=== PATIENT | female | born 1980 | race Caucasian/White ===

== ENCOUNTER 2016-12-16 01:26 | Emergency (ER) | payer OTHER, SELFPAY ==
[~2016-12-16] VITALS: Ht 165.1 cm; Wt 166.5 kg
[2016-12-16] MEDS ORDERED: ALBUTEROL 90 MCG/ACT 8GM HFA INHALER INH ONE (04:30)
[2016-12-16] MEDS ORDERED: BENZONATATE 100 MG CAP PO ONE (04:30)
[2016-12-16] MEDS ORDERED: TESS100C PO (05:54)
[2016-12-16] MEDS ORDERED: ALBUTEROL SULFATE 2.5 MG/0.5 ML INH NEB SOLN NEB ONE (06:00)
[2016-12-16 06:01] VITALS: BP 139/74
--- NOTE | 2016-12-16 08:08 | REP ---
Clinical: Cough. Findings: Mediastinum and cardiac silhouette are normal. Trace basilar atelectasis cannot be excluded. No focal consolidation, effusion, or pneumothorax. Skeletal structures are intact. Impression: No focal consolidation. Question minimal trace right basilar atelectasis. Signed by Prosper Larios MD 12/16/2016 07:59 A
== END 2016-12-16 06:10 | disposition home or self-care (01) ==
LOC: M ED 02:31
DX: J20.9 Acute bronchitis, unspecified (principal)

== ENCOUNTER → 2017-02-06 | Outpatient (CLI) | payer OTHER ==
[~2017-02-06] MED LIST: TESS100C PO
--- NOTE | 2017-02-10 10:16 | SLEEPCENT ---
DATE OF PROCEDURE: 02/06/2017 INTERPRETATION: Nocturnal polysomnography was performed due to concern for the obstructive sleep apnea syndrome in this patient with a history of excessive somnolence, nonrestorative sleep and a BMI of greater than 45. 8 hours and 3 minutes of data were reviewed. There were 348 minutes of sleep identified. Sleep latency was prolonged at 47 minutes. REM latency was normal at 71 minutes. Sleep architecture improved after interventions were made. Overall sleep efficiency was 69%. The patient's EKG showed a sinus rhythm with an average heart rate of 78 beats per minute. EEG showed normal wave forms for awake and sleep. There were 158 respiratory events identified of 10 seconds in duration or greater for an apnea-hypopnea index of 27.2. The events were associated with oxygen desaturations into the low 80s. Having clearly established the presence of obstructive sleep apnea syndrome, testing was stopped shortly after midnight for the application of pressure therapy. The patient was fit a ResMed AirFit F10 full face mask of small size, 4 cm of water pressure were applied to the circuit and the lights were again extinguished. Patient quickly established sleep and best pressure for palliation of respiratory events was found to be 7 cm of water. Remaining measures of sleep physiology were normal. IMPRESSION: Severe obstructive sleep apnea syndrome (G47.33). Apnea hypopnea index 27.2. RECOMMENDATION: Nightly use of pressure therapy 7 cm of water.
== END ==
LOC: M SLEEP 19:45
PROVIDERS: ATTEND Nurse Practitioner Adult Health
DX: G47.33 Obstructive sleep apnea (adult) (pediatric) (principal)

== ENCOUNTER 2018-04-07 00:50 | Emergency (ER) | payer SELFPAY, OTHER | END 2018-04-07 02:00 | disposition home or self-care (01) | LOC: M ED 00:50 | DX: S46.912A Strain of unspecified muscle, fascia and tendon at shoulder and upper arm level, left arm, initial encounter (principal); X58.XXXA Exposure to other specified factors, initial encounter; Y92.099 Unspecified place in other non-institutional residence as the place of occurrence of the external cause; Y93.9 Activity, unspecified; Y99.9 Unspecified external cause status; E28.2 Polycystic ovarian syndrome | CPT/HCPCS: 73030 ==

== ENCOUNTER 2018-11-24 01:32 | Emergency (ER) | payer SELFPAY ==
[~2018-11-24] VITALS: Ht 167.6 cm; Wt 163.6 kg
[~2018-11-24 01:32] MED LIST changes: +CAPS0.022 TOP
[2018-11-24] MEDS ORDERED: ISOVUE-370 76% 100ML VIAL (Q9967) As Ordered ONE (02:45)
[2018-11-24] MEDS ORDERED: NS 500 ML IV ONE (02:45)
[2018-11-24] MEDS ORDERED: ASPIRIN 81 MG CHEW TABLET PO ONE (02:45)
[2018-11-24 02:57] LABS: BASO % 0.4 % (0.0-1.0); EOS # 0.2 10^3/uL (0.0-0.50); EOS % 1.8 % (0.0-3.0); HEMATOCRIT 38.3 % (36.0-47.0); HEMOGLOBIN 12.4 g/dl (12.0-15.5); LYMPH # 2.6 10^3/uL (1.5-4.5); LYMPH % 28.7 % (24.0-44.0); MEAN CORPUSCULAR HEMOGLOBIN 29.3 pg (27.0-33.0); MEAN CORPUSCULAR HGB CONC 32.4 g/dl (32.0-36.5); MEAN CORPUSCULAR VOLUME 90.5 fl (80.0-96.0); MONO # 0.8 10^3/uL (0.0-0.8); MONO % 8.3 % (0.0-5.0); NEUTROPHILS # 5.6 10^3/uL (1.8-7.7); NEUTROPHILS % 60.5 % (36.0-66.0); PLATELET COUNT, AUTOMATED 318 10^3/uL (150-450); RED BLOOD COUNT 4.23 10^6/uL (4.00-5.40); WHITE BLOOD COUNT 9.2 10^3/uL (4.0-10.0)
[2018-11-24 03:21] LABS: HCG, SERUM QUALITATIVE NEGATIVE (NEGATIVE)
[2018-11-24 03:26] LABS: BLOOD UREA NITROGEN 18 MG/DL (7-18); CALCIUM LEVEL 8.1 MG/DL (8.5-10.1); CARBON DIOXIDE LEVEL 31 MEQ/L (21-32); CHLORIDE LEVEL 106 MEQ/L (98-107); CK-MB VALUE MASS < 1.0 NG/ML (<3.6); CPK CREATINE PHOSPHOKINASE 64 U/L (26-192); CREATININE FOR GFR 0.81 MG/DL (0.55-1.30); GLOMERULAR FILTRATION RATE > 60.0 (>58); GLUCOSE, FASTING 87 MG/DL (70-100); MB/CK RELATIVE INDEX 1.56 (< OR =4); NT-PRO BNP 30 PG/ML (<125); SODIUM LEVEL 142 MEQ/L (136-145); TROPONIN I < 0.02 NG/ML (< 0.10)
--- NOTE | 2018-11-24 04:21 | REPVR ---
EXAM: US Duplex Bilateral Lower Extremity Veins EXAM DATE/TIME: 11/24/2018 3:50 AM CLINICAL HISTORY: 38 years old, female; Signs and symptoms; Edema, localized; Lower extremity, bilateral; Additional info: Lower extremity swelling, HX of dvts TECHNIQUE: Imaging protocol: Real-time duplex ultrasound of the Bilateral Lower Extremities with 2-D frances scale, color Doppler flow and spectral waveform analysis. Complete exam focused on the bilateral lower extremity veins. COMPARISON: US Duplex, Ext LOWER veins, bilat 04/10/2016 9:42 AM FINDINGS: Right deep veins: Unremarkable. The common femoral, femoral, and popliteal veins are patent without thrombus. Normal compressibility, augmentation response and Doppler waveforms. Right superficial veins: Saphenofemoral junction is patent without thrombus. Left deep veins: Unremarkable. The common femoral, femoral, and popliteal veins are patent without thrombus. Normal compressibility, augmentation response and Doppler waveforms. Left superficial veins: Saphenofemoral junction is patent without thrombus. Soft tissues: Unremarkable. IMPRESSION: No deep vein thrombosis in the veins visualized in both lower extremities. Electronically signed by: Rogelio Samson On 11/24/2018 04:21:38 AM
--- NOTE | 2018-11-24 04:32 | REPVR ---
EXAM: CT Angiography Chest With Contrast EXAM DATE/TIME: 11/24/2018 2:36 AM CLINICAL HISTORY: 38 years old, female; Chest pain; R/O pe TECHNIQUE: Imaging protocol: Axial computed tomographic angiography images of the chest with intravenous contrast using CT angiography protocol. Coronal and sagittal reformatted images were created and reviewed. 3D rendering: MIP reconstructed images were created and reviewed. Radiation optimization: All CT scans at this facility use at least one of these dose optimization techniques: automated exposure control; mA and/or kV adjustment per patient size (includes targeted exams where dose is matched to clinical indication); or iterative reconstruction. Contrast material: ISO; Contrast volume: 75 ml; Contrast route: AC; COMPARISON: CT ANGIO CHEST 04/10/2016 11:22 AM FINDINGS: Pulmonary arteries: There is no pulmonary embolism in the main, lobar, or segmental pulmonary arteries. The timing of the contrast bolus was suboptimal for the assessment of the subsegmental pulmonary arteries, which are poorly opacified. Aorta: There is no thoracic aortic aneurysm, pseudoaneurysm, penetrating atherosclerotic ulcer, or dissection. There is a bovine aortic arch. Lungs: There is a 3 mm solid pulmonary nodule in the right upper lobe (image 60 of the axial series 501), which is unchanged compared to the prior CT scan on 04/10/2016, and for which no further followup is necessary. The lungs are otherwise clear. There is no lung consolidation, pulmonary infarct, or mass. No emphysematous changes or interstitial lung disease is noted. The major airways are patent. Pleural space: Normal. No pneumothorax. No pleural effusion. Heart: No cardiomegaly. No pericardial effusion. The ratio of the diameter of the right ventricle to the diameter of the left ventricle measures less than 1, which is within normal limits and there is no evidence for a right ventricular strain. Mediastinum: No mediastinal mass, hemorrhage, or pneumomediastinum is noted. Lymph nodes: Normal. No enlarged lymph nodes. Bones/joints: The imaged bony structures are intact. There is no suspicious osteolytic or osteoblastic lesion. There are endplate spurs in the thoracic spine. Soft tissues: Unremarkable. IMPRESSION: No acute findings in the chest. No pulmonary embolism in the main, lobar, or segmental pulmonary arteries. The timing of the contrast bolus was suboptimal for the assessment of the subsegmental pulmonary arteries, which are poorly opacified. Electronically signed by: Rogelio Samson On 11/24/2018 04:32:31 AM
[2018-11-24] MEDS ORDERED: KETOROLAC 30 MG/ML VIAL (J1885) IV ONE (05:45)
[2018-11-24 05:53] VITALS: BP 130/65
--- NOTE | 2018-11-24 06:03 | ECGEPIP ---
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
== END 2018-11-24 06:23 | disposition home or self-care (01) ==
LOC: M ED 01:32
DX: R07.89 Other chest pain (principal); G89.29 Other chronic pain; M25.551 Pain in right hip; F41.1 Generalized anxiety disorder; Z87.891 Personal history of nicotine dependence; Z86.718 Personal history of other venous thrombosis and embolism; Z86.711 Personal history of pulmonary embolism
CPT/HCPCS: 71275; 80048; 82550; 82553; 83880; 84484; 84703; 85025; 93005; 93041; 93970; 94760; 96374; 99284; J1885; Q9967

== ENCOUNTER 2019-05-05 11:31 | Observation (INO) | payer OTHER, SELFPAY ==
[~2019-05-05] VITALS: Ht 170.2 cm; Wt 165.6 kg
[2019-05-05] MEDS ORDERED: ACET1TAB55 PO (11:51)
[2019-05-05 12:21] LABS: BASO % 0.3 % (0.0-1.0); EOS # 0.1 10^3/uL (0.0-0.5); EOS % 1.2 % (0.0-3.0); HEMATOCRIT 41.4 % (36.0-47.0); HEMOGLOBIN 13.3 g/dl (12.0-15.5); LYMPH # 2.1 10^3/uL (1.5-5.0); LYMPH % 21.6 % (24.0-44.0); MEAN CORPUSCULAR HEMOGLOBIN 29.1 pg (27.0-33.0); MEAN CORPUSCULAR HGB CONC 32.1 g/dl (32.0-36.5); MEAN CORPUSCULAR VOLUME 90.6 fl (80.0-96.0); MONO # 0.6 10^3/uL (0.0-0.8); MONO % 6.1 % (0.0-5.0); NEUTROPHILS # 6.7 10^3/uL (1.5-8.5); NEUTROPHILS % 70.6 % (36.0-66.0); PLATELET COUNT, AUTOMATED 311 10^3/uL (150-450); RED BLOOD COUNT 4.57 10^6/uL (4.00-5.40); WHITE BLOOD COUNT 9.5 10^3/uL (4.0-10.0)
[2019-05-05 12:31] LABS: INR 1.01
[2019-05-05 12:41] LABS: PARTIAL THROMBOPLASTIN TIME 30.4 SECONDS (25.0-38.4)
[2019-05-05 12:47] LABS: ALBUMIN 3.4 GM/DL (3.2-5.2); ALT/SGPT 44 U/L (12-78); BILIRUBIN,DIRECT 0.1 MG/DL (0.0-0.2); BILIRUBIN,TOTAL 0.3 MG/DL (0.2-1.0); BLOOD UREA NITROGEN 17 MG/DL (7-18); CALCIUM LEVEL 8.2 MG/DL (8.5-10.1); CARBON DIOXIDE LEVEL 29 MEQ/L (21-32); CHLORIDE LEVEL 105 MEQ/L (98-107); CK-MB VALUE MASS < 1.0 NG/ML (<3.6); CPK CREATINE PHOSPHOKINASE 62 U/L (26-192); CREATININE FOR GFR 0.83 MG/DL (0.55-1.30); GLOMERULAR FILTRATION RATE > 60.0 (>58); GLUCOSE, FASTING 94 MG/DL (70-100); LIPASE 88 U/L (73-393); MB/CK RELATIVE INDEX 1.61 (< OR =4); POTASSIUM SERUM 3.7 MEQ/L (3.5-5.1); SODIUM LEVEL 140 MEQ/L (136-145); TOTAL PROTEIN 7.5 GM/DL (6.4-8.2); TROPONIN I < 0.02 NG/ML (< 0.10)
[2019-05-05] MEDS ORDERED: ISOVUE-370 76% 100ML VIAL (Q9967) As Ordered ONE (13:11)
[2019-05-05] MEDS ORDERED: ASPIRIN 325 MG TAB PO ONE (13:15)
--- NOTE | 2019-05-05 13:37 | REP ---
CHEST, SINGLE VIEW: There is no evidence of acute infiltrate. No pleural effusion is seen. The heart is normal in size. The mediastinal silhouette is unremarkable. The visualized osseous structures are intact. IMPRESSION: No acute pulmonary disease. Electronically Signed by Duc Noyola MD 05/06/2019 09:24 A
--- NOTE | 2019-05-05 13:40 | REP ---
CT BRAIN WITHOUT CONTRAST: HISTORY: CVA. No comparison brain imaging. CT FINDINGS: Preliminary digital advance scout radiograph is unremarkable. The bony calvarium is intact. Visualized paranasal sinuses are clear. On soft tissue window settings, lateral, third, and fourth ventricles are normal in size and position. There is a solitary punctate dystrophic calcification in the periventricular white matter of the left frontal lobe. Noyola-white differentiation pattern is otherwise unremarkable. There is no evidence of infarct, hemorrhage, mass, extra-axial fluid collection, or midline shift. IMPRESSION: Punctate dystrophic periventricular white matter calcification left frontal lobe noted incidentally. Otherwise, normal noncontrast head CT. No acute intracranial abnormality. Electronically Signed by Andres Landeros MD 05/05/2019 02:42 P
--- NOTE | 2019-05-05 14:14 | REP ---
CT angiography brain with IV contrast: History: CVA. Comparison is made with today's brain CT. CT contrast dose: 100 mL of intravenous Isovue [address] angiographic findings: The distal vertebral arteries are patent and codominant. Basilar artery is tortuous but otherwise unremarkable. The posterior cerebral and superior cerebellar arteries are unremarkable bilaterally. Distal internal carotid arteries are normal and symmetric. No stenosis or occlusion is seen. The anterior and middle cerebral arteries appear intact. No vessel cutoff is seen. There is a small area of nodular enhancement in the periventricular white matter of the left frontal lobe corresponding to the focal density seen on CT study. This was originally felt to be calcification. However, CT angiography shows a linear vessel posterior to this and evidence of contrast enhancement within it. This suggests the possibility of cavernoma versus developmental venous anomaly with a tiny focal hemorrhage. There is no visible davis aneurysm. Sagittal sinus is patent. The sigmoid sinuses are patent although asymmetric, larger on the right. Impression: Focal 5 mm nodular area of enhancement with draining or feeding vessel in the periventricular white matter of the left frontal lobe. These findings are felt to be suggestive of cavernoma versus developmental venous anomaly with a tiny focal hemorrhage. No evidence of davis aneurysm. Otherwise negative. Findings were telephoned to the referring provider in the ED at the time of this dictation. Electronically Signed by Andres Landeros MD 05/05/2019 02:44 P
--- NOTE | 2019-05-05 14:18 | REP ---
CT angiography of the neck with IV contrast: HISTORY: CVA. CT CONTRAST DOSE: 100 mL of intravenous Isovue 370. CT ANGIOGRAPHIC FINDINGS: The visualized aortic arch is unremarkable. Great vessel origins are normal in appearance. The cervical vertebral arteries are normal and symmetric. Common carotid arteries are unremarkable. Carotid bifurcations are clear. No ICA stenosis is seen. The cervical internal carotid arteries are unremarkable. There is no evidence to suggest carotid dissection or atherosclerotic narrowing. Maximal intensity projection and surface rendered images show no additional abnormality. IMPRESSION: Unremarkable CT angiography of the neck. Electronically Signed by Andres Landeros MD 05/05/2019 02:44 P
--- NOTE | 2019-05-05 15:26 | REP ---
MR angiography the brain without contrast: History: CVA. Technique: 3-D [id number] MR angiography of the brain is acquired in the usual fashion and maximal intensity projection images were generated in rotational format about the vertical and horizontal axes. In addition, source axial T1-weighted images are viewed in cine mode. MR angiographic findings: The distal vertebral arteries are patent and co-dominant. Basilar artery is a little tortuous but widely patent. The posterior cerebral and superior cerebellar vessels are normal and symmetric. The distal internal carotid arteries are unremarkable. Anterior and middle cerebral arteries appear intact. There is no visible davsi aneurysm or arteriovenous malformation. Impression: Unremarkable MR angiography the brain. Electronically Signed by Andres Landeros MD 05/05/2019 03:18 P
--- NOTE | 2019-05-05 15:27 | REP ---
MRI BRAIN WITHOUT CONTRAST: HISTORY: CVA. Comparison is made with today's brain CT study and today's CT ANGIO of the brain. The CT study shows a focal density in the periventricular white matter of the left frontal lobe which was thought to be calcific. CT angiography demonstrates a vessel leading in or out of this lesion and some evidence of enhancement question vascular lesion. TECHNIQUE: Axial and sagittal imaging planes are utilized for T1- and T2-weighted scans. Sequences include spin-echo, fast spin echo, FLAIR, and diffusion weighted sequences. MRI FINDINGS: There is no MR evidence of significant paranasal sinus disease. No intraorbital abnormality is seen. No bony calvarial lesion is seen. Craniocervical junction and upper cervical cord are normal in appearance. Lateral, third, and fourth ventricles are normal in size and position. There is no evidence of restricted diffusion. There is a 6 mm nodular low signal intensity area in the periventricular white matter of the left frontal lobe on gradient echo images which may reflect focal calcification and/or blood breakdown products. There is subtle low signal intensity on T1-weighted scans. There is no evidence of parenchymal edema at this level or adjacent to it. There is no evidence to suggest acute infarction. The gradient echo sequence demonstrates veins in the region of this nodular lesion. No other focal abnormality is seen. No extra-axial fluid collection or mass lesion is observed. 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 No acute bleed is seen. No evidence of acute infarction or other acute intracranial abnormality. Electronically Signed by Andres Landeros MD 05/05/2019 03:31 P
--- NOTE | 2019-05-05 16:21 | HPEPDOC ---
General Date of Admission 05/05/19 Date of Service: May 05, 2019 Chief Complaint The patient is a 38-year-old female admitted with a reason for visit of L Arm Weakness. Source: Patient Exam Limitations: No limitations Timing/Duration: 4-6 hours Severity: Mild History of Present Illness Patient is 38 years old female with past medical history of morbid obesity, PCOS presented hospital with left extremity numbness, tingling, left side face numbness. Patient stated that around 9:00 in the morning she started feeling tingling sensation over her left arm associated with numbness which went down to the tips of fingers. Of note patient uses crunches. Also patient noticed numbness on the left side of the face including forehead, cheek. She decided to come to the emergency room. 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 Neck CTA unremarkable. Home Medications Scheduled PRN Acetaminophen (Acetaminophen) 325 Mg Tablet, 650 MG PO QID PRN for PAIN, (Reported) Allergies Coded Allergies: No Known Allergies (Unverified , 04/07/18) Past Medical History Medical History PCOS Morbid obesity Right leg DVT Family History I reviewed family medical history and it is not pertinent Social History * Smoker: Denies Alcohol: Denies Drugs: denies A-FIB/CHADSVASC A-FIB History Current/History of A-Fib/PAF?: No Current PO Anticoag Therapy: No Review of Systems Constitutional: Denies: Chills, Fever Eyes: Denies: Pain, Vision change ENT: Denies: Head Aches, Ear Pain Skin: Reports: Other; Denies: Rash, Lesions Pulmonary: Denies: Dyspnea, Cough Cardiovascular: Denies: Chest Pain, Palpitations Gastrointestinal: Denies: Nausea, Vomiting Genitourinary: Denies: Dysuria, Frequency Hematologic: Denies: Bruising Endocrine: Denies: Polydipsia, Polyphagia Musculoskeletal: Reports: Other Symptoms (left upper extremity numbness from the muscles to the tip of the finger); Denies: Neck Pain, Back Pain Neurological: Reports: Weakness (left upper extremity weakness), Numbness (left-sided face numbness) Psych: Reports: Mood Normal Physical Examination General Exam: Positive: Alert, Cooperative Eye Exam: Positive: PERRLA, Conjunctiva & lids normal ENT Exam: Positive: Atraumatic, Mucous membr. moist/pink Neck Exam: Positive: Supple; Negative: JVD Chest Exam: Positive: Clear to auscultation Heart Exam: Positive: Rate Normal Telemetry: Positive: No significant arrhythmia Abdomen Exam: Positive: Normal bowel sounds Extremity Exam: Negative: Clubbing, Cyanosis Skin Exam: Negative: Nl turgor and temperature Neuro Exam: Positive: Cranial Nerves 3-12 NL (deficiency of cranial nerve V, facial numbness on the left side, strength of right leg 2/5, left leg 3 out of 5) Psych Exam: Positive: Mental status NL Vital Signs Vital Signs Date Time Temp Pulse Resp B/P (MAP) Pulse Ox O2 Delivery O2 Flow Rate FiO2 05/05/19 13:15 83 18 163/81 (108) 97 Room Air 05/05/19 11:32 98.3 Laboratory Data Labs 24H Laboratory Tests 2 05/05/19 11:48: Immature Granulocyte % (Auto) 0.2, White Blood Count 9.5, Red Blood Count 4.57, Hemoglobin 13.3, Hematocrit 41.4, Mean Corpuscular Volume 90.6, Mean Corpuscular Hemoglobin 29.1, Mean Corpuscular Hemoglobin Concent 32.1, Red Cell Distribution Width 14.5, Platelet Count 311, Neutrophils (%) (Auto) 70.6H, Lymphocytes (%) (Auto) 21.6L, Monocytes (%) (Auto) 6.1H, Eosinophils (%) (Auto) 1.2, Basophils (%) (Auto) 0.3, Neutrophils # (Auto) 6.7, Lymphocytes # (Auto) 2.1, Monocytes # (Auto) 0.6, Eosinophils # (Auto) 0.1, Basophils # (Auto) 0.0, Nucleated Red Bl ood Cells % (auto) 0.0, Prothrombin Time 13.0, Prothromb Time International Ratio 1.01, Activated Partial Thromboplast Time 30.4, Anion Gap 6L, Glomerular Filtration Rate > 60.0, Calcium Level 8.2L, Aspartate Amino Transf (AST/SGOT) 16, Alanine Aminotransferase (ALT/SGPT) 44, Alkaline Phosphatase 142H, Total Bilirubin 0.3, Direct Bilirubin 0.1, Total Creatine Kinase 62, Creatine Kinase MB < 1.0, Creatine Kinase MB Relative Index 1.61, Troponin I < 0.02, Total Protein 7.5, Albumin 3.4, Albumin/Globulin Ratio 0.83L, Lipase 88 05/05/19 12:38: POC Glucose (Misc Panel) 98, POC Sodium (Misc Panel) 141, POC Potassium (Misc Panel) 3.7, POC Chloride (Misc Panel) 103, POC Total CO2 (Misc Panel) 26.0, POC Blood Urea Nitrogen (Misc Panel 18, POC Ionized Calcium (Misc Panel) 4.3L, POC Creatinine (Misc Panel) 0.8, POC Hematocrit (Misc Panel) 42.0 CBC/BMP Laboratory Tests 05/05/19 11:48 Red Blood Count 4.57, Mean Corpuscular Volume 90.6, Mean Corpuscular Hemoglobin 29.1, Mean Corpuscular Hemoglobin Concent 32.1, Red Cell Distribution Width 14.5, Neutrophils (%) (Auto) 70.6 H, Lymphocytes (%) (Auto) 21.6 L, Monocytes (%) (Auto) 6.1 H, Eosinophils (%) (Auto) 1.2, Basophils (%) (Auto) 0.3, Neutrophils # (Auto) 6.7, Lymphocytes # (Auto) 2.1, Monocytes # (Auto) 0.6, Eosinophils # (Auto) 0.1, Basophils # (Auto) 0.0 Assessment/Plan Assessment and plan: Patient is 38 years old female with past medical history of morbid obesity, PCOS presented to the hospital with left extremity numbness, tingling, left side face numbness. Patient stated that around 9:00 in the morning she started feeling tingling sensation over left arm associated with numbness which went down to the tips of fingers. Also patient noticed numbness on the left side of the face including forehead, cheek. Problems (1) Facial numbness Problem Text: Differential diagnosis includes TIA Imaging studies including MRI, CTA, MRA unremarkable We'll check lipid profile Aspirin 325 for now Atorvastatin Appreciate/agree with neurologist consult (2) Left arm numbness Status: Acute Problem Text: Unclear etiology for now Imaging study was negative We will order CT scan of the neck That is possibility for impingement syndrome, patient uses crunches (3) Left arm weakness Status: Acute Problem Text: See above Plan / VTE VTE Prophylaxis Ordered?: Yes WOLF HUTTON DO May 05, 2019 16:21
[2019-05-05] MEDS ORDERED: ACETAMINOPHEN TAB 650MG DOSE (2X325MG) PO PRN (16:30)
--- NOTE | 2019-05-05 18:17 | REPVR ---
PROCEDURE INFORMATION: Exam: CT Cervical Spine With Contrast Exam date and time: 05/05/2019 5:34 PM Clinical history: 38 years old, female; Neck pain; Additional info: Neck pain , left arm numbness TECHNIQUE: Imaging protocol: Computed tomography images of the cervical spine with intravenous contrast. Radiation optimization: All CT scans at this facility use at least one of these dose optimization techniques: automated exposure control; mA and/or kV adjustment per patient size (includes targeted exams where dose is matched to clinical indication); or iterative reconstruction. COMPARISON: No relevant prior studies available. FINDINGS: Vertebrae: No acute fracture. Normal alignment. Discs/Spinal canal/Neural foramina: Minimal degenerative change at the atlantodental articulation. No significant disc space narrowing. No appreciable spinal canal stenosis. Soft tissues: CTA neck findings are dictated separately. Sinuses: Mild mucosal thickening in the left maxillary sinus. Lungs: Lung apices are normal. IMPRESSION: No acute cervical spine abnormality. Electronically signed by: Shanda Wallace On 05/05/2019 18:16:53 PM
[2019-05-05] MEDS ORDERED: ATORVASTATIN 20 MG TAB PO SCH (21:00)
[2019-05-05 22:13] VITALS: BP 149/87
[2019-05-05 22:20] VITALS: BP 118/66
[2019-05-06 06:02] LABS: HEMATOCRIT 39.5 % (36.0-47.0); HEMOGLOBIN 12.6 g/dl (12.0-15.5); MEAN CORPUSCULAR HEMOGLOBIN 28.9 pg (27.0-33.0); MEAN CORPUSCULAR HGB CONC 31.9 g/dl (32.0-36.5); MEAN CORPUSCULAR VOLUME 90.6 fl (80.0-96.0); PLATELET COUNT, AUTOMATED 284 10^3/uL (150-450); RED BLOOD COUNT 4.36 10^6/uL (4.00-5.40); WHITE BLOOD COUNT 7.7 10^3/uL (4.0-10.0)
[2019-05-06 06:13] VITALS: BP 116/56
[2019-05-06 06:28] LABS: BLOOD UREA NITROGEN 12 MG/DL (7-18); CARBON DIOXIDE LEVEL 28 MEQ/L (21-32); CHLORIDE LEVEL 107 MEQ/L (98-107); CHOLESTEROL LEVEL 150 MG/DL (<200); CHOLESTEROL RISK RATIO 2.678 (<5); CREATININE FOR GFR 0.74 MG/DL (0.55-1.30); GLOMERULAR FILTRATION RATE > 60.0 (>58); GLUCOSE, FASTING 89 MG/DL (70-100); HDL CHOLESTEROL 56 MG/DL (>40); LDL CHOLESTEROL 81 MG/DL (<100); MAGNESIUM LEVEL 2.1 MG/DL (1.8-2.4); NON-HDL-C 94 MG/DL; POTASSIUM SERUM 3.9 MEQ/L (3.5-5.1); SODIUM LEVEL 142 MEQ/L (136-145); TRIGLYCERIDES LEVEL 64 MG/DL (<150)
[2019-05-06 06:37] LABS: VITAMIN B12 LEVEL 409 PG/ML (247-911)
--- NOTE | 2019-05-06 07:25 | ECGEPIP ---
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
[2019-05-06] MEDS ORDERED: ASPIRIN 81 MG CHEW TABLET PO SCH (09:00)
[2019-05-06] MEDS ORDERED: INFLUENZA QUADRIVALENT PF VACCINE 0.5ML SYRINGE (90686) IM ONE (09:00)
[2019-05-06] MEDS ORDERED: ASPI81CH8 PO (10:19)
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
[2019-05-08 00:07] LABS: IgG P18 AB Present (.); IgG P23 AB Absent (.); IgG P28 AB Absent (.); IgG P30 AB Absent (.); IgG P39 AB Absent (.); IgG P41 AB Present (.); IgG P45 AB Absent (.); IgG P66 AB Absent (.); IgG P93 AB Absent (.); IgM P23 AB Absent (.); IgM P39 AB Absent (.); IgM P41 AB Absent (.); LYME IgG WB INTERPRETATION Negative (.); LYME IgM WB INTERPRETATION Negative (.)
[2019-05-11 00:07] LABS: Lyme Disease IgG/IgM Antibodie <0.91 ISR (0.00-0.90); Lyme Disease IgM Ab Quantitati <0.80 index (0.00-0.79); VITAMIN B1 LEVEL WHOLE BLOOD 118.9 nmol/L (66.5-200.0)
== END 2019-05-06 13:10 | disposition home or self-care (01) ==
LOC: M ED 11:31 → M ED INP 11:32 → M MS5PR 17:25
PROVIDERS: ADMIT Internal Medicine; ATTEND Internal Medicine
DX: R20.0 Anesthesia of skin (principal); R53.1 Weakness; R51 Headache; R42 Dizziness and giddiness; H53.8 Other visual disturbances; R47.81 Slurred speech; M79.602 Pain in left arm; Q28.3 Other malformations of cerebral vessels; E28.2 Polycystic ovarian syndrome; E66.01 Morbid (severe) obesity due to excess calories; Z68.43 Body mass index [BMI] 50.0-59.9, adult; G47.33 Obstructive sleep apnea (adult) (pediatric); F41.1 Generalized anxiety disorder; F32.9 Major depressive disorder, single episode, unspecified; Z87.891 Personal history of nicotine dependence; Z86.718 Personal history of other venous thrombosis and embolism; Z79.82 Long term (current) use of aspirin
CPT/HCPCS: 36415; 70450; 70496; 70498; 70544; 70551; 71045; 72125; 80047; 80048; 80061; 80076; 82525; 82550; 82553; 82607; 83690; 83735; 84425; 84484; 85025; 85027; 85610; 85730; 86617; 86850; 86900; 86901; 90471; 90686; 93005; 93041; 94760; 97161; 99285; Q9967

== ENCOUNTER → 2021-01-11 | Outpatient (CLI) | payer BC ==
[~2021-01-11] MED LIST changes: +ACET1TAB55 PO; +ASPI81CH8 PO
--- NOTE | 2021-01-12 16:52 | REPPI ---
INDICATION: S99.912A INJURY OF LEFT ANKLE COMPARISON: None. TECHNIQUE: AP, lateral, bilateral oblique views. FINDINGS: Generalized soft tissue swelling. No acute fracture or dislocation. Skeletal structures and joint spaces are intact and normal. Ankle mortise appears stable. No subcutaneous emphysema or radiodense foreign body. IMPRESSION: Soft tissue swelling. No acute fracture or dislocation appreciated. <Electronically signed by Prosper Larios > 01/12/21 [id number]
--- NOTE | 2021-01-12 16:59 | REPPI ---
INDICATION: M79.672 PAIN OF LEFT HEEL COMPARISON: None. TECHNIQUE: AP, lateral, bilateral oblique views left foot. FINDINGS: The osseous structures and joint spaces are intact and normal. There is no evidence for acute fracture or dislocation. Surrounding soft tissues are unremarkable. No subcutaneous emphysema or radiodense foreign body. Incidental small calcaneal heel spur noted. IMPRESSION: . No acute fracture or dislocation. <Electronically signed by Prosper Larios > 01/12/21 0075
--- NOTE | 2021-01-12 17:00 | REPPI ---
INDICATION: M79.672 PAIN OF LEFT HEEL COMPARISON: None. TECHNIQUE: Single axial view the left calcaneus FINDINGS: Calcaneus appears intact. No acute fracture or dislocation. Surrounding soft tissues without subcutaneous emphysema or foreign body. IMPRESSION: . No acute fracture or dislocation. <Electronically signed by Prosper Larios > 01/12/21 1940
== END ==
LOC: M PLAIMG 15:37
PROVIDERS: ATTEND Physician Assistant
DX: M77.32 Calcaneal spur, left foot (principal); M25.472 Effusion, left ankle; M79.672 Pain in left foot

== ENCOUNTER → 2021-04-02 | Outpatient (CLI) | payer BC ==
--- NOTE | 2021-04-02 14:22 | REP ---
INDICATION: SOB, COUGH. COMPARISON: Multiple TECHNIQUE: PA and lateral FINDINGS: The superior mediastinal structures are midline. The cardiac silhouette is unremarkable in size, shape, and position. The diaphragmatic surfaces of the lungs are regular, and the costophrenic angles are clear. The pulmonary cadena are clear. The imaged osseous structures are intact. IMPRESSION: There is no acute cardiopulmonary disease. <Electronically signed by Aristides Ferguson > 04/02/21 1546
== END ==
LOC: M RAD 13:40
PROVIDERS: ATTEND Physician Assistant Medical
DX: R06.02 Shortness of breath (principal); R05 Cough

== ENCOUNTER 2021-11-14 11:46 | Emergency (ER) | payer BC ==
[~2021-11-14] VITALS: Ht 172.7 cm; Wt 191.4 kg
[2021-11-14] MEDS ORDERED: THC GUMMIES (11:57)
[2021-11-14] MEDS ORDERED: ALBU8.5H (11:57)
[2021-11-14 13:59] LABS: BASO # 0.1 10^3/uL (0.0-0.2); BASO % 0.5 % (0.0-1.0); EOS # 0.2 10^3/uL (0.0-0.5); EOS % 2.1 % (0.0-3.0); HEMOGLOBIN 12.5 g/dl (12.0-15.5); LYMPH # 2.3 10^3/uL (1.5-5.0); LYMPH % 24.7 % (24.0-44.0); MEAN CORPUSCULAR HEMOGLOBIN 28.8 pg (27.0-33.0); MEAN CORPUSCULAR HGB CONC 31.3 g/dl (32.0-36.5); MEAN CORPUSCULAR VOLUME 92.2 fl (80.0-96.0); MONO # 0.9 10^3/uL (0.0-0.8); MONO % 9.3 % (2.0-8.0); NEUTROPHILS # 5.7 10^3/uL (1.5-8.5); NEUTROPHILS % 63.2 % (36.0-66.0); PLATELET COUNT, AUTOMATED 300 10^3/uL (150-450); RED BLOOD COUNT 4.34 10^6/uL (4.00-5.40); WHITE BLOOD COUNT 9.1 10^3/uL (4.0-10.0)
[2021-11-14 14:05] LABS: BLOOD UREA NITROGEN 13 MG/DL (7-18); CALCIUM LEVEL 8.8 MG/DL (8.5-10.1); CARBON DIOXIDE LEVEL 29 MEQ/L (21-32); CHLORIDE LEVEL 105 MEQ/L (98-107); CREATININE FOR GFR 0.84 MG/DL (0.55-1.30); GLOMERULAR FILTRATION RATE > 60.0 (>58); GLUCOSE, FASTING 84 MG/DL (70-100); POTASSIUM SERUM 4.3 MEQ/L (3.5-5.1); SODIUM LEVEL 140 MEQ/L (136-145)
[2021-11-14 15:39] VITALS: BP 134/82
== END 2021-11-14 15:58 | disposition home or self-care (01) ==
LOC: M ED 11:46
DX: R22.41 Localized swelling, mass and lump, right lower limb (principal); E28.2 Polycystic ovarian syndrome; K21.9 Gastro-esophageal reflux disease without esophagitis; M51.9 Unspecified thoracic, thoracolumbar and lumbosacral intervertebral disc disorder; Z86.718 Personal history of other venous thrombosis and embolism; Z79.82 Long term (current) use of aspirin

== ENCOUNTER 2022-01-15 11:53 | Emergency (ER) | payer BC ==
[~2022-01-15] VITALS: Ht 162.6 cm; Wt 183.7 kg
[~2022-01-15 11:53] MED LIST changes: +ALBU8.5H; +THC GUMMIES
[2022-01-15] MEDS ORDERED: BACK500T PO (12:23)
[2022-01-15] MEDS ORDERED: GABA-282 PO (12:23)
[2022-01-15] MEDS ORDERED: PHEN1TAB73 PO (12:23)
[2022-01-15] MEDS ORDERED: CEFD300C41 PO (12:23)
[2022-01-15 17:47] VITALS: BP 140/70
== END 2022-01-15 18:00 | disposition home or self-care (01) ==
LOC: M ED 11:53
DX: G89.29 Other chronic pain (principal); M54.50 Low back pain, unspecified; Z79.899 Other long term (current) drug therapy; Z79.82 Long term (current) use of aspirin

== ENCOUNTER → 2022-01-22 | Outpatient (CLI) | payer BC ==
[~2022-01-22] MED LIST changes: +BACK500T PO; +CEFD300C41 PO; +GABA-282 PO; +PHEN1TAB73 PO
== END ==
LOC: M SOG 13:19
PROVIDERS: ATTEND Orthopaedic Surgery
DX: Z47.89 Encounter for other orthopedic aftercare (principal); M16.0 Bilateral primary osteoarthritis of hip

== ENCOUNTER 2022-02-17 08:45 | Outpatient (RCR) | payer BC | END 2022-02-23 | LOC: M PT 08:45 | PROVIDERS: ATTEND Student in an Organized Health Care Education/Training Program | DX: M54.41 Lumbago with sciatica, right side (principal) ==

== ENCOUNTER → 2022-07-07 | Outpatient (CLI) | payer BC | LOC: M SLEEP 20:00 | PROVIDERS: ATTEND Physician Assistant | DX: G47.33 Obstructive sleep apnea (adult) (pediatric) (principal) ==

== ENCOUNTER → 2022-09-04 | Outpatient (CLI) | payer BC ==
[2022-09-04 10:02] LABS: BASO % 0.3 % (0.0-1.0); EOS # 0.2 10^3/uL (0.0-0.5); EOS % 2.5 % (0.0-3.0); HEMATOCRIT 42.6 % (36.0-47.0); LYMPH # 1.8 10^3/uL (1.5-5.0); LYMPH % 25.2 % (24.0-44.0); MEAN CORPUSCULAR HEMOGLOBIN 27.3 pg (27.0-33.0); MEAN CORPUSCULAR HGB CONC 30.5 g/dl (32.0-36.5); MEAN CORPUSCULAR VOLUME 89.3 fl (80.0-96.0); MONO # 0.6 10^3/uL (0.0-0.8); NEUTROPHILS # 4.5 10^3/uL (1.5-8.5); NEUTROPHILS % 62.7 % (36.0-66.0); PLATELET COUNT, AUTOMATED 305 10^3/uL (150-450); RED BLOOD COUNT 4.77 10^6/uL (4.00-5.40); WHITE BLOOD COUNT 7.1 10^3/uL (4.0-10.0)
[2022-09-04 10:20] LABS: HEMOGLOBIN A1c 5.5 % (4.0-6.0)
[2022-09-04 10:33] LABS: IRON (FE) 31 UG/DL (50-170)
[2022-09-04 10:34] LABS: PERCENT SATURATION 10.5 % (13.2-45.0); TOTAL IRON BINDING CAPACITY 294 UG/DL (250-425)
[2022-09-04 10:37] LABS: ALBUMIN 3.3 G/DL (3.2-5.2); ALKALINE PHOSPHATASE 125 U/L (46-116); ALT/SGPT 31 U/L (7.0-40); AST/SGOT 20 U/L (<34); BILIRUBIN,TOTAL 0.2 MG/DL (0.3-1.2); BLOOD UREA NITROGEN 16 MG/DL (9-23); CALCIUM LEVEL 8.6 MG/DL (8.5-10.1); CARBON DIOXIDE LEVEL 28 MMOL/L (20-31); CHLORIDE LEVEL 103 MMOL/L (98-107); CHOLESTEROL LEVEL 139 MG/DL (<200); CHOLESTEROL RISK RATIO 3.55 (<5); CREATININE FOR GFR 0.73 MG/DL (0.55-1.30); FOLATE 4.5 NG/ML (>5.4); GLOMERULAR FILTRATION RATE > 60.0 (>58); GLUCOSE, FASTING 87 MG/DL (60-100); HDL CHOLESTEROL 39.1 MG/DL (>40); LDL CHOLESTEROL 82.3 MG/DL (<100); NON-HDL-C 100 MG/DL; POTASSIUM SERUM 4.1 MMOL/L (3.5-5.1); SODIUM LEVEL 138 MMOL/L (136-145); THYROID STIMULATING HORMONE 1.813 uIU/ML (0.55-4.78); TOTAL 25(OH) VITAMIN D 15.6 NG/ML (20.0-100.0); TOTAL PROTEIN 7.2 G/DL (5.7-8.2); TRIGLYCERIDES LEVEL 88 MG/DL (<150); VITAMIN B12 LEVEL 394 PG/ML (211-911)
== END ==
LOC: M EKG 08:54
PROVIDERS: ATTEND Surgery
DX: E28.2 Polycystic ovarian syndrome (principal); E66.01 Morbid (severe) obesity due to excess calories; Z98.84 Bariatric surgery status

== ENCOUNTER → 2022-11-06 | Outpatient (CLI) | payer BC | LOC: M WHC 09:49 | PROVIDERS: ATTEND Family Medicine | DX: Z12.31 Encounter for screening mammogram for malignant neoplasm of breast (principal); R92.8 Other abnormal and inconclusive findings on diagnostic imaging of breast ==

== ENCOUNTER → 2022-12-16 | Outpatient (CLI) | payer BC | LOC: M WHC 14:42 | PROVIDERS: ATTEND Internal Medicine | DX: N60.01 Solitary cyst of right breast (principal); N60.02 Solitary cyst of left breast | CPT/HCPCS: 76642; 77066; G0279 ==

== ENCOUNTER → 2023-02-02 | Outpatient (CLI) | payer BC | LOC: M PLALAB 08:58 | PROVIDERS: ATTEND Nurse Practitioner Family | DX: Z12.4 Encounter for screening for malignant neoplasm of cervix (principal) | CPT/HCPCS: 36415; G0123 ==

== ENCOUNTER → 2023-04-03 | Outpatient (CLI) | payer BC | LOC: M SOG 08:01 | PROVIDERS: ATTEND Physician Assistant | DX: M25.531 Pain in right wrist (principal); M25.532 Pain in left wrist; Z53.9 Procedure and treatment not carried out, unspecified reason ==

== ENCOUNTER → 2023-04-17 | Outpatient (CLI) | payer BC | LOC: M SOG 08:41 | PROVIDERS: ATTEND Physician Assistant | DX: M25.531 Pain in right wrist (principal); M25.532 Pain in left wrist ==

== ENCOUNTER → 2023-06-16 | Outpatient (REF) | payer BC ==
[~2023-06-16] MED LIST changes: -CEFD300C41 PO; +CEFD300C42 PO
== END ==
LOC: M SFHCLERA 16:50
PROVIDERS: ATTEND Family Medicine
DX: R30.0 Dysuria (principal)

== ENCOUNTER 2023-07-03 06:12 | Day surgery (SDC) | payer BC ==
[~2023-07-03] VITALS: Ht 160 cm; Wt 160.1 kg
[~2023-07-03 06:12] MED LIST changes: -ALBU8.5H; +ALBU8.5H INH; +CALC-190 PO; +CEFD1CAP9 PO; -CEFD300C42 PO; +IRON65TA2 PO; +URSO300C3 PO; +VITMTA PO
[2023-07-03] MEDS ORDERED: LR 1,000 ML IV SCH (06:45)
[2023-07-03] MEDS ORDERED: LIDOCAINE 2% 100MG/5ML SDV (FOR ANES.) As Ordered ONE (07:46)
[2023-07-03] MEDS ORDERED: propofoL 200 MG/20 ML VIAL As Ordered ONE (07:46)
[2023-07-03] MEDS ORDERED: KETOROLAC 60MG 2ML VIAL As Ordered ONE (07:46)
[2023-07-03] MEDS ORDERED: dexmedeTOMIDine (4MCG/ML)200MCG/50ML BTL (PRECEDEX) As Ordered ONE (07:46)
[2023-07-03] MEDS ORDERED: fentaNYL 100 MCG/2 ML INJECTION As Ordered ONE (07:46)
[2023-07-03] MEDS ORDERED: ONDANSETRON 4MG 2ML VIAL As Ordered ONE (07:46)
[2023-07-03] MEDS ORDERED: SUCCINYLCHOLINE 100MG/5ML SYRINGE As Ordered ONE (07:46)
[2023-07-03] MEDS ORDERED: ACETAMINOPHEN 1000MG 100ML IV BAG As Ordered ONE (07:46)
[2023-07-03] MEDS ORDERED: MIDAZOLAM INJ 2MG/2ML VIAL As Ordered ONE (07:46)
[2023-07-03] MEDS ORDERED: oxyCODONE 5MG TAB PO PRN (08:10)
[2023-07-03] MEDS ORDERED: fentaNYL 100 MCG/2 ML INJECTION IV PRN (08:10)
[2023-07-03] MEDS ORDERED: ONDANSETRON 4MG 2ML VIAL IV PRN (08:10)
[2023-07-03 09:18] VITALS: BP 115/65; TEMP 97.6; O2SAT 95
== END 2023-07-03 09:49 | disposition home or self-care (01) ==
LOC: M SDC 06:12
PROVIDERS: ATTEND Orthopaedic Surgery Hand Surgery
DX: G56.02 Carpal tunnel syndrome, left upper limb (principal); G47.30 Sleep apnea, unspecified; Z79.899 Other long term (current) drug therapy; Z98.84 Bariatric surgery status; Z87.891 Personal history of nicotine dependence
CPT/HCPCS: 29848; 81025; J0131; J0330; J0665; J1100; J2250; J2405; J3010

== ENCOUNTER → 2024-02-03 | Outpatient (CLI) | payer BC ==
[2024-02-03 16:03] LABS: CHOLESTEROL RISK RATIO 3.73 (<5); HDL CHOLESTEROL 38.8 MG/DL (>40); LDL CHOLESTEROL 90.6 MG/DL (<100); NON-HDL-C 106.2 MG/DL; PERCENT SATURATION 15.8 % (13.2-45.0)
== END ==
LOC: M PLALAB 11:49
PROVIDERS: ATTEND Physician Assistant
DX: Z98.84 Bariatric surgery status (principal)

== ENCOUNTER → 2024-05-03 | Outpatient (CLI) | payer BC ==
[~2024-05-03] MED LIST changes: +GABA-1172 PO; -GABA-282 PO
[2024-05-03 17:55] LABS: HEMATOCRIT 41.6 % (36.0-47.0); HEMOGLOBIN 13.5 g/dl (12.0-15.5); MEAN CORPUSCULAR HEMOGLOBIN 30.8 pg (27.0-33.0); MEAN CORPUSCULAR HGB CONC 32.5 g/dl (32.0-36.5); MEAN CORPUSCULAR VOLUME 94.8 fl (80.0-96.0); PLATELET COUNT, AUTOMATED 309 10^3/uL (150-450); RED BLOOD COUNT 4.39 10^6/uL (4.00-5.40); WHITE BLOOD COUNT 8.3 10^3/uL (4.0-10.0)
[2024-05-03 18:23] LABS: ALBUMIN 3.5 G/DL (3.2-5.2); ALKALINE PHOSPHATASE 140 U/L (46-116); ALT/SGPT 133 U/L (7.0-40); AST/SGOT 42 U/L (<34); BILIRUBIN,TOTAL 0.4 MG/DL (0.3-1.2); BLOOD UREA NITROGEN 17 MG/DL (9-23); CARBON DIOXIDE LEVEL 30 MMOL/L (20-31); CHLORIDE LEVEL 105 MMOL/L (98-107); CHOLESTEROL LEVEL 154 MG/DL (<200); CHOLESTEROL RISK RATIO 3.79 (<5); FERRITIN 76.2 NG/ML (7.3-270.7); FOLATE 10.19 NG/ML (>5.4); GLOMERULAR FILTRATION RATE > 60.0 (>58); GLUCOSE, FASTING 74 MG/DL (60-100); HDL CHOLESTEROL 40.6 MG/DL (>40); IRON (FE) 39 UG/DL (50-170); NON-HDL-C 113.4 MG/DL; PERCENT SATURATION 12.7 % (13.2-45.0); POTASSIUM SERUM 4.3 MMOL/L (3.5-5.1); SODIUM LEVEL 140 MMOL/L (136-145); TOTAL 25(OH) VITAMIN D 34.5 NG/ML (20.0-100.0); TOTAL IRON BINDING CAPACITY 306 UG/DL (250-425); TOTAL PROTEIN 7.4 G/DL (5.7-8.2); TRIGLYCERIDES LEVEL 62 MG/DL (<150)
[2024-05-03 18:24] LABS: VITAMIN B12 LEVEL 558 PG/ML (211-911)
[2024-05-03 18:41] LABS: HEMOGLOBIN A1c 4.7 % (4.0-6.0)
== END ==
LOC: M PLALAB 15:13
PROVIDERS: ATTEND Physician Assistant
DX: E44.0 Moderate protein-calorie malnutrition (principal)

== ENCOUNTER 2024-05-16 20:28 | Emergency (ER) | payer BC ==
[2024-05-16 20:45] VITALS: BP 134/78; TEMP 98.4; O2SAT 100
[2024-05-16 21:16] LABS: BASO # 0.1 10^3/uL (0.0-0.2); BASO % 0.6 % (0.0-1.0); EOS # 0.1 10^3/uL (0.0-0.5); EOS % 1.6 % (0.0-3.0); HEMATOCRIT 41.2 % (36.0-47.0); HEMOGLOBIN 13.5 g/dl (12.0-15.5); LYMPH # 3.2 10^3/uL (1.5-5.0); LYMPH % 36.7 % (24.0-44.0); MEAN CORPUSCULAR HEMOGLOBIN 30.4 pg (27.0-33.0); MEAN CORPUSCULAR HGB CONC 32.8 g/dl (32.0-36.5); MEAN CORPUSCULAR VOLUME 92.8 fl (80.0-96.0); MONO # 0.7 10^3/uL (0.0-0.8); MONO % 8.1 % (2.0-8.0); NEUTROPHILS # 4.6 10^3/uL (1.5-8.5); NEUTROPHILS % 52.9 % (36.0-66.0); PLATELET COUNT, AUTOMATED 311 10^3/uL (150-450); RED BLOOD COUNT 4.44 10^6/uL (4.00-5.40); WHITE BLOOD COUNT 8.7 10^3/uL (4.0-10.0)
[2024-05-16 21:28] LABS: INR 1.04; PARTIAL THROMBOPLASTIN TIME 32.9 SECONDS (24.8-34.2); PROTHROMBIN TIME 13.3 SECONDS (12.5-14.5)
[2024-05-16 21:42] LABS: CK-MB VALUE MASS < 1.0 NG/ML (<3.6)
[2024-05-16 21:43] LABS: CPK CREATINE PHOSPHOKINASE 53 U/L (34-145); MB/CK RELATIVE INDEX 1.88 (< OR =4)
[2024-05-16] MEDS ORDERED: ASPI81TA26 PO (22:28)
[2024-05-16 22:30] VITALS: BP 114/59; O2SAT 99
[2024-05-16] MEDS: ASPIRIN 325 MG TAB PO ONE (22:40)
== END 2024-05-16 22:56 | disposition home or self-care (01) ==
LOC: M ED 20:28
DX: G43.909 Migraine, unspecified, not intractable, without status migrainosus (principal); E11.9 Type 2 diabetes mellitus without complications; J45.909 Unspecified asthma, uncomplicated; Z86.718 Personal history of other venous thrombosis and embolism; Z79.899 Other long term (current) drug therapy

== ENCOUNTER 2024-05-17 19:26 | Emergency (ER) | payer BC ==
[~2024-05-17] VITALS: Ht 167.6 cm; Wt 117.3 kg
[~2024-05-17 19:26] MED LIST changes: +ASPI81TA26 PO
[2024-05-17] MEDS ORDERED: ISOVUE-370 76% 100ML VIAL As Ordered ONE (19:57)
[2024-05-17 20:39] LABS: BASO # 0.1 10^3/uL (0.0-0.2); BASO % 0.7 % (0.0-1.0); EOS # 0.1 10^3/uL (0.0-0.5); EOS % 1.4 % (0.0-3.0); HEMATOCRIT 40.4 % (36.0-47.0); HEMOGLOBIN 13.3 g/dl (12.0-15.5); LYMPH # 1.9 10^3/uL (1.5-5.0); MEAN CORPUSCULAR HEMOGLOBIN 30.9 pg (27.0-33.0); MEAN CORPUSCULAR HGB CONC 32.9 g/dl (32.0-36.5); MEAN CORPUSCULAR VOLUME 93.7 fl (80.0-96.0); MONO # 0.6 10^3/uL (0.0-0.8); MONO % 8.5 % (2.0-8.0); NEUTROPHILS # 4.4 10^3/uL (1.5-8.5); NEUTROPHILS % 62.3 % (36.0-66.0); PLATELET COUNT, AUTOMATED 292 10^3/uL (150-450); RED BLOOD COUNT 4.31 10^6/uL (4.00-5.40)
[2024-05-17 20:48] LABS: INR 1.1; PARTIAL THROMBOPLASTIN TIME 33.8 SECONDS (24.8-34.2); PROTHROMBIN TIME 13.8 SECONDS (12.5-14.5)
[2024-05-17 21:01] LABS: BLOOD UREA NITROGEN 16 MG/DL (9-23); CARBON DIOXIDE LEVEL 27 MMOL/L (20-31); CHLORIDE LEVEL 108 MMOL/L (98-107); CREATININE FOR GFR 0.63 MG/DL (0.55-1.30); GLOMERULAR FILTRATION RATE > 60.0 (>58); GLUCOSE, FASTING 76 MG/DL (60-100); HCG, SERUM QUALITATIVE NEGATIVE (NEGATIVE); POTASSIUM SERUM 4.1 MMOL/L (3.5-5.1); SODIUM LEVEL 141 MMOL/L (136-145)
[2024-05-17] MEDS: METOCLOPRAMIDE INJ 10MG/2ML VIAL IV ONE (23:53)
[2024-05-17] MEDS: NS 1,000 ML IV ONE (23:53)
[2024-05-17] MEDS: KETOROLAC 30 MG/ML 1ML VIAL IV ONE (23:53)
[2024-05-17] MEDS: diphenhydrAMINE 50MG/ML VIAL IV ONE (23:53)
[2024-05-18 01:58] VITALS: BP 136/67; TEMP 98.1; O2SAT 99
== END 2024-05-18 02:00 | disposition home or self-care (01) ==
LOC: M ED 19:26
DX: G43.819 Other migraine, intractable, without status migrainosus (principal); F41.1 Generalized anxiety disorder; F32.9 Major depressive disorder, single episode, unspecified; Z86.718 Personal history of other venous thrombosis and embolism; E66.01 Morbid (severe) obesity due to excess calories; G47.33 Obstructive sleep apnea (adult) (pediatric); Z79.899 Other long term (current) drug therapy
CPT/HCPCS: 70450; 70496; 70498; 71045; 80048; 84703; 85025; 85610; 85730; 93005; 93041; 94760; 96361; 96374; 96375; 99285; J1200; J1885; J2765; Q9967

== ENCOUNTER 2024-06-16 21:21 | Emergency (ER) | payer BC ==
[~2024-06-16] VITALS: Ht 193 cm; Wt 113.3 kg
[2024-06-16 21:24] VITALS: BP 142/70; TEMP 98.4; O2SAT 97
== END 2024-06-16 23:17 | disposition left against medical advice (07) ==
LOC: M ED 21:21
DX: Z53.21 Procedure and treatment not carried out due to patient leaving prior to being seen by health care provider (principal)

== ENCOUNTER 2025-04-10 21:02 | Emergency (ER) | payer OTHER, BC ==
[~2025-04-10] VITALS: Ht 170.2 cm; Wt 93.3 kg
[2025-04-11] MEDS: ACETAMINOPHEN 325 MG TAB PO ONE
[2025-04-11] MEDS ORDERED: RALTEGRAVIR 400 MG TAB PO SCH
[2025-04-11] MEDS ORDERED: EXPOSURE KIT-ADULT 7 DAY SUPPLY PO ONE (03:25)
[2025-04-11] MEDS: DOXYCYCLINE HYCLATE 100 MG TABLET PO ONE (03:53)
[2025-04-11] MEDS: ULIPRISTAL ACETATE 30 MG TAB PO ONE (03:53)
[2025-04-11] MEDS: LIDOCAINE 1% SDV 5 ML VIAL DILUENT ONE (03:53)
[2025-04-11] MEDS: RALTEGRAVIR 400 MG TAB PO ONE (04:31)
[2025-04-11 05:11] LABS: HEPATITIS B SURFACE ANTIBODY NEGATIVE (POSITIVE); HEPATITIS C VIRUS ABY INDEX 0.02 INDEX (<0.8); HIV 1&2 SCREEN NEGATIVE (NEGATIVE)
[2025-04-11] MEDS: METOCLOPRAMIDE 5 MG TAB PO ONE (07:50)
[2025-04-11] MEDS ORDERED: RALT40TA PO ×2 (07:53→08:32)
[2025-04-11] MEDS ORDERED: EMTR1TAB16 PO ×2 (07:53→08:32)
[2025-04-11] MEDS ORDERED: DOXY-442 PO ×2 (07:53→08:32)
[2025-04-11 08:15] VITALS: TEMP 97.5
[2025-04-11 08:30] VITALS: BP 111/62; O2SAT 99
== END 2025-04-11 08:40 | disposition home or self-care (01) ==
LOC: M ED 21:02
DX: R51.9 Headache, unspecified (principal); R10.11 Right upper quadrant pain; D13.4 Benign neoplasm of liver; N94.4 Primary dysmenorrhea; T76.21XA Adult sexual abuse, suspected, initial encounter; Z79.1 Long term (current) use of non-steroidal anti-inflammatories (NSAID); Z79.51 Long term (current) use of inhaled steroids; Z79.2 Long term (current) use of antibiotics; Z79.899 Other long term (current) drug therapy; Z79.810 Long term (current) use of selective estrogen receptor modulators (SERMs)
CPT/HCPCS: 70450; 70490; 74176; 76705; 86706; 86780; 86803; 87340; 87389; 96372; 99285; J0696

== ENCOUNTER 2025-05-05 03:46 | Emergency (ER) | payer BC, OTHER ==
[~2025-05-05] VITALS: Ht 167.6 cm; Wt 94.0 kg
[~2025-05-05 03:46] MED LIST changes: +DOXY-442 PO; +EMTR1TAB16 PO; +RALT40TA PO
[2025-05-05] MEDS: AUGMENTIN 875 MG TAB PO ONE (05:50)
[2025-05-05] MEDS: TETANUS/DIPHTH/ACEL. PERTUSSIS 0.5 ML SYR IM.IMMUN ONE (05:51)
[2025-05-05] MEDS ORDERED: AMOX875T2 PO (05:53)
[2025-05-05 06:28] VITALS: BP 109/68; TEMP 98.3; O2SAT 100
== END 2025-05-05 06:30 | disposition home or self-care (01) ==
LOC: M ED 03:46
DX: S61.431A Puncture wound without foreign body of right hand, initial encounter (principal); S61.432A Puncture wound without foreign body of left hand, initial encounter; W54.0XXA Bitten by dog, initial encounter; F41.9 Anxiety disorder, unspecified; F32.A Depression, unspecified; F90.9 Attention-deficit hyperactivity disorder, unspecified type; E28.2 Polycystic ovarian syndrome; K21.9 Gastro-esophageal reflux disease without esophagitis; Y92.009 Unspecified place in unspecified non-institutional (private) residence as the place of occurrence of the external cause; Y93.89 Activity, other specified; Y99.9 Unspecified external cause status; Z79.52 Long term (current) use of systemic steroids; Z79.2 Long term (current) use of antibiotics; Z79.82 Long term (current) use of aspirin; Z79.899 Other long term (current) drug therapy; Z23 Encounter for immunization

== ENCOUNTER 2025-06-22 14:26 | Emergency (ER) | payer OTHER ==
[~2025-06-22] VITALS: Ht 167.6 cm; Wt 76.4 kg
[~2025-06-22 14:26] MED LIST changes: +AMOX875T2 PO
[2025-06-22 18:15] VITALS: BP 116/69; TEMP 98; O2SAT 100
== END 2025-06-22 18:32 | disposition home or self-care (01) ==
LOC: EDBD 14:26 → M ED 14:26
DX: S80.01XA Contusion of right knee, initial encounter (principal); S70.01XA Contusion of right hip, initial encounter; S40.012A Contusion of left shoulder, initial encounter; W19.XXXA Unspecified fall, initial encounter; Y92.009 Unspecified place in unspecified non-institutional (private) residence as the place of occurrence of the external cause; Y93.9 Activity, unspecified; Y99.9 Unspecified external cause status; S76.191A Other specified injury of right quadriceps muscle, fascia and tendon, initial encounter; M51.34 Other intervertebral disc degeneration, thoracic region; M17.11 Unilateral primary osteoarthritis, right knee; M65.261 Calcific tendinitis, right lower leg; M22.2X2 Patellofemoral disorders, left knee; M25.461 Effusion, right knee; M25.761 Osteophyte, right knee; Z96.643 Presence of artificial hip joint, bilateral; F32.A Depression, unspecified; F41.9 Anxiety disorder, unspecified; G47.33 Obstructive sleep apnea (adult) (pediatric); Z87.891 Personal history of nicotine dependence; Z79.899 Other long term (current) drug therapy; Z88.6 Allergy status to analgesic agent; Z91.041 Radiographic dye allergy status